=== PATIENT | male | born 1975 | race Caucasian/White ===

== ENCOUNTER 2019-03-19 17:23 | Observation (INO) | payer BC, SELFPAY ==
--- NOTE | ~2019-03-19 | CT_ITS ---
EXAMINATION: CTA chest PE protocol DATE: 03/19/2019 18:32 INDICATION: Mid chest pain TECHNIQUE: Computed tomography angiography (CTA) of the chest was performed with 100 mL Omnipaque-350 intravenous contrast timed to evaluate the pulmonary arteries. Coronal maximum intensity projection 3D-reconstructions were created by the technologist. The dose-length product (DLP) was 653.71 mGy-cm. Automated exposure control and iterative reconstruction technique were employed. COMPARISON: None. FINDINGS: The pulmonary arteries are moderately well opacified. No pulmonary embolism is identified. There is mild dependent atelectasis. A 2 mm nodule of the right middle lobe likely reflects old granu lomatous disease. No pleural effusion or pneumothorax is identified. No pathologically enlarged thora cic lymph nodes are identified. The heart size is normal. A disc spacer device is noted at C6-7. IMPRESSION: 1. Moderate opacification of the pulmonary arteries without evidence of pulmonary embolism. 2. Mild atelectasis. Reviewed, dictated and finalized at location A. MACHINE OPERATOR IMPRESSION: 1. Moderate opacification of the pulmonary arteries without evidence of pulmona ry embolism. 2. Mild atelectasis.
[2019-03-19 17:39] VITALS: BP 160/93; PULSE 89; RESP 20; TEMP 36.7; O2SAT 100
--- NOTE | 2019-03-19 17:41 | ECG_ITS ---
Measurements Intervals [place] Rate: 79 P: 49 SC: 172 QRS: 35 QRSD: 104 T: 51 QT: 326 QTc: 376 Interpretive Statements SINUS RHYTHM NORMAL ECG Electronically Signed On 03-20-2019 7:01:46 BOX WORKER by Timoteo Sal D.O.
[2019-03-19] MEDS: ASPIRIN 81 MG CHEWABLE TABLET 324 MG PO (17:48)
--- NOTE | 2019-03-19 17:54 | ED.CHESTPAIN ---
HPI - Chest Pain General Chief Complaint: Chest Pain Stated Complaint: chest pain Time Seen by Provider: 03/19/19 17:53 Source: patient and RN notes reviewed Mode of arrival: other Limitations: no limitations History of Present Illness HPI narrative: Pt is a 43 y/o male who presents to the ED with c/o generalized upper CP that began at 4:30 PM today while driving home from work. Pt was recommended to come to the ED for furher evaluation. He notes that his pain is currently better. Pt was recently dx with HTN and hyperlipidemia on (03/15/19). Pt states that he went to his PCP's office today for a recheck on his HTN. He states that he has not been prescribed any medication because his PCP has been monitoring his HTN. Pt also reports posterior head pressure pain and nausea, but denies SOB, vomiting, and diaphoresis. 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 complaint: chest pain Onset (ago): hour(s) (2) Timing of current episode: other (improved currently) Onset: other (while driving) Pain location: other (generalized upper chest) Relieving factors: medication-other (ASA) Associated symptoms: nausea and other (posterior head pressure pain) Risk Factors Coronary artery disease risk factors: hyperlipidemia, hypertension and family history of CAD before age 50 Related Data Home Medications Medication Instructions Recorded Confirmed No Home Medications 03/19/19 03/19/19 Allergies Allergy/AdvReac Type Severity Reaction Status Date / Time latex Allergy Unknown Rash Verified 03/19/19 17:43 Review of Systems Review of Systems: All systems reviewed & are unremarkable except as noted in HPI and below Cardiovascular: Cardiovascular: Reports chest pain (generalized upper, better currently) and Denies diaphoresis Respiratory: Respiratory: Denies dyspnea Gastrointestinal: Gastrointestinal: Reports nausea and Denies vomiting Neurologic: Reports other (posterior head pressure pain) [facility] Past Medical History Medical History (Updated 03/19/19 @ 20:10 by Portia Romano MD) Hyperlipidemia Hypertension Inguinal hernia Surgical History Surgical History (Updated 03/19/19 @ 18:49 by Yoko Santamaria) H/O cervical spine surgery to replace a disc with an artificial disc. No fusion. H/O inguinal hernia repair Family History Family History (Updated 03/19/19 @ 18:46 by Yoko Santamaria) Father Hx of CABG 40s-50s Myocardial infarction 40s-50s Social History Social History (Updated 03/19/19 @ 18:47 by Yoko Santamaria) Smoking status: Never smoker Second hand tobacco smoke exposure: No Alcohol intake: never Substance use: never Exam Const: General: cooperative, no acute distress and alert Nutritional Appearance: well nourished Orientation/consciousness: patient oriented x3 Limitations: no limitations HENMT: Mouth: Yes lip normal and Yes moist mucous membranes Throat: other (throat normal) Resp: Effort & Inspection: normal respiratory effort Auscultation: clear to auscultation bilaterally Cardio: Rate: regular rate Rhythm: regular rhythm Heart sounds: no murmurs GI: GI Palp: Yes Soft to palpation and No Tenderness to palpation present (GI) Auscultation: normal bowel sounds Skin: General skin exam: normal color Neuro: General: patient oriented x3 Cognition (Neuro): normal cognition Speech: normal speech Extrem: General: normal to inspection, full ROM and no clubbing, cyanosis or edema Psych: Mental Status: mental status grossly normal Affect: normal affect Attitude: cooperative Course Course Emergency Course: Patient presents with symptoms of chest pain. Recently found to have hypertension hyperlipidemia. Family history is positive for coronary disease. Patient pain-free after nitroglycerin. No evidence of pulmonary embolism noted on CT scan. Patient will be placed in observation to chest pain center for further evaluation. Reevaluation(s) Reevaluation #1: Notified by nurse cornejo
[2019-03-19 17:56] LABS: Basophils Percent Auto 0.5 % (0.2-1.2); Eosinophils Absolute Auto 0.1 K/mm3 (0-0.3); Eosinophils Percent Auto 0.7 % (0-4.4); Hematocrit 44.6 % (42.0-52.0); Immature Granulocyte Absolute 0.03 K/mm3 (0.00-0.031); Immature Granulocyte Percent A 0.4 % (0-0.5); Lymphocytes Absolute Auto 2.91 K/mm3 (0.9-3.2); Lymphocytes Percent Auto 34.3 % (18.3-44.2); Mean Corpuscular HGB Conc 33.6 g/dl (32-36); Mean Corpuscular Hemoglobin 29.3 pg (26-34); Mean Corpuscular Volume 87.1 fl (80-100); Mean Platelet Volume 9.4 fl (7.4-10.4); Monocytes Absolute Auto 0.6 K/mm3 (0.1-0.6); Monocytes Percent Auto 6.5 % (2.6-8.5); Neutrophils Absolute Auto 4.9 K/mm3 (1.3-6.7); Neutrophils Percent Auto 57.6 % (45.5-73.1); Platelet Count Result 290 k/mm3 (150-375); Red Blood Count 5.12 M/mm3 (4.6-6.20); Red Cell Distribution Width 12.2 % (11.5-14.5); White Blood Count 8.5 K/mm3 (4.5-10.0)
[2019-03-19 18:01] LABS: Blood Urea Nitrogen 11 mg/dL (9-20); Calcium 9.4 mg/dL (8.4-10.2); Carbon Dioxide 25 mmol/L (22-30); Chloride 99 mmol/L (98-107); Estimated CRCL calculation 148 ml/min; Estimated Glomerular Filt Rate > 60; Glucose 124 mg/dL (75-110); Potassium 4.3 mmol/L (3.4-5.0); Sodium 138 mmol/L (137-145)
--- NOTE | 2019-03-19 18:02 | PC.NURSE ---
Pt received 1, 0.4mg nitro sl at 1803. pt bp 120/62, hr 94bpm. pt cp rated at 5/10.
[2019-03-19 18:13] LABS: Troponin I < 0.012 ng/mL (0.000-0.034)
[2019-03-19 18:15] VITALS: O2SAT 90
--- NOTE | 2019-03-19 18:22 | PC.NURSE ---
180. pt recieved 2nd 0.4mg sl nitro, pt pt decreased after first to 03/19. 1811- EDP at bedside to eval pt after his spo2 dropped to 90% on RA. EDP states to hold 3rd nitro. CTA chest ordered.
[2019-03-19 18:27] LABS: Prothrombin Time 12.9 Seconds (11.1-14.7)
[2019-03-19 18:28] LABS: Partial Thromboplastin Time 25.1 SECONDS (22.3-36.8)
[2019-03-19 18:48] LABS: NT Pro B Type Natriuretic Pept 24 PG/ML (5-100)
[2019-03-19] MEDS: NITROGLYCERIN SL 0.4 MG TABLET SUBLINGUAL (19:37)
[2019-03-19] MEDS: NITROGLYCERIN OINTMENT 1 INCH DOSE TRANSDERM (19:41)
[2019-03-19 20:18] VITALS: BP 117/76
[2019-03-19 20:22] VITALS: BMI 31.1
[2019-03-19 20:25] VITALS: BP 122/72; PULSE 74; PULSE 75; RESP 16; TEMP 36.4; O2SAT 95
--- NOTE | 2019-03-19 20:43 | ADMGEN ---
This patient, Daron Nguyen, was admitted to [facility] [id number]. Patient/family oriented to hospital policies and general routines including ID bracelet, bed and alarms, visiting hours, pain management, procedures, bathroom and other care routines, personal items, smoking policy, room service/diet, and visiting hours. Valuables list has been completed. Information on how to activate the Rapid Response Team has been discussed. Patient/Family are encouraged to report perceived risks to care and to ask questions if they do not understand what they are told or what they should do.
[2019-03-19 21:37] LABS: Cholesterol 176 mg/dL (0-200); HDL Direct 25 mg/dL; Triglycerides 206 mg/dL (<150)
[2019-03-19 21:48] LABS: LDL Cholesterol Direct 103 mg/dL
[2019-03-19 21:50] LABS: Troponin I < 0.012 ng/mL (0.000-0.034)
[2019-03-19 22:00] VITALS: PULSE 81
--- NOTE | 2019-03-19 22:44 | ECG_ITS ---
Measurements Intervals [place] Rate: 77 P: 54 RI: 183 QRS: 48 QRSD: 102 T: 47 QT: 353 QTc: 399 Interpretive Statements SINUS RHYTHM NORMAL ECG Electronically Signed On 03-20-2019 7:12:54 BAG CUTTER by Timoteo Sal D.O.
[2019-03-20] VITALS (8 sets, daily range): BP systolic 108–135; BP diastolic 61–71; PULSE 71–82; RESP 14–16; TEMP 36.1–36.5; O2SAT 93–100
--- NOTE | 2019-03-20 | EST_ITS ---
Patient Info Name: Daron Nguyen Age: 43 years : 1975 Gender: Male Ht: 72 in Wt: 230 lbs BSA: 2.33 m2 Technical Quality: Good Exam Date: 03/20/2019 11:12 AM Exam Location: [facility] Patient Status: Inpatient Admit Date: 03/19/2019 Staff Ordering Physician: Eladio Smith MD Branch Manager: Eleazar Juarez RDCS Attending Provider: DILLAN MARIN Exercise Technologist: Virgen Benedict RDCS Nurse: Dillan Mccormick ANP, ACNP-BC Exam Type: CA stress echo Study Info Indications R07.89 - Other chest pain Treadmill exercise stress echocardiogram is performed. History/Risk Factors Family History: Coronary Artery Disease History/Risk Factors Hypertension, dyslipidemia. Summary 1. Resting EKG showed sinus rhythm, no significant ST-T abnormalities. Patient exercised for 11.51 minutes achieving a cardiac workload of 12.1 Mets.Baseline No ECG evidence of ischemia. PVCs were seen during the exercise and in the recovery. Baseline echocardiogram showed normal LV systolic function. Stress echocardiogram showed hyperdynamic LV systolic function without segmental wall motion abnormality. Stress echocardiogram negative for ischemia at 97% of maximum age predicted heart rate. Stress Echo Findings Left Ventricle Hyperdynamic LV systolic function, no segmental wall motion abnormalities. Left Ventricle Normal LV size, and systolic function, ejection fraction about 65-70%. Protocol: Ashish Stress ECG Details Stage: REST Duration (min): 5 min : 11 sec Speed (mph): 0.0 Grade (%): 0 HR (bpm): 82 SBP (mmHg): 135 DBP (mmHg): 58 METS: --- Stage: REST Duration (min): 12 min : 56 sec Speed (mph): 0.0 Grade (%): 0 HR (bpm): 90 SBP (mmHg): 135 DBP (mmHg): 58 METS: --- Stage: STAGE 1 Duration (min): 1 min : 0 sec Speed (mph): 1.7 Grade (%): 10 HR (bpm): 107 SBP (mmHg): 135 DBP (mmHg): 58 METS: --- Stage: STAGE 1 Duration (min): 2 min : 0 sec Speed (mph): 1.7 Grade (%): 10 HR (bpm): 109 SBP (mmHg): 135 DBP (mmHg): 58 METS: --- Stage: STAGE 1 Duration (min): 3 min : 0 sec Speed (mph): 1.7 Grade (%): 10 HR (bpm): 104 SBP (mmHg): 140 DBP (mmHg): 56 METS: --- Stage: STAGE 2 Duration (min): 1 min : 0 sec Speed (mph): 2.5 Grade (%): 12 HR (bpm): 122 SBP (mmHg): 140 DBP (mmHg): 56 METS: --- Stage: STAGE 2 Duration (min): 2 min : 0 sec Speed (mph): 2.5 Grade (%): 12 HR (bpm): 125 SBP (mmHg): 165 DBP (mmHg): 70 METS: --- Stage: STAGE 2 Duration (min): 3 min : 0 sec Speed (mph): 2.5 Grade (%): 12 HR (bpm): 126 SBP (mmHg): 165 DBP (mmHg): 70 METS: --- Stage: STAGE 3 Duration (min): 1 min : 0 sec Speed (mph): 3.4 Grade (%): 14 HR (bpm): 140 SBP (mmHg): 183 DBP (mmHg): 70 METS: --- Stage: STAGE 3 Duration (min): 2 min : 0 sec Speed (mph): 3.4 Grade (%): 14 HR (bpm): 146 SBP (mmHg): 183
[2019-03-20 00:14] LABS: Troponin I < 0.012 ng/mL (0.000-0.034)
--- NOTE | 2019-03-20 01:44 | ECG_ITS ---
Measurements Intervals [place] Rate: 72 P: 50 DC: 179 QRS: 48 QRSD: 109 T: 39 QT: 356 QTc: 390 Interpretive Statements SINUS RHYTHM NORMAL ECG Electronically Signed On 03-20-2019 9:00:05 SUPERVISOR TYPE PHOTOGRAPHY by Timoteo Sal D.O.
[2019-03-20] MEDS: ASPIRIN 81 MG CHEWABLE TABLET PO (07:11)
[2019-03-20] MEDS: ACETAMINOPHEN 325 MG TABLET 650 MG PO (07:11)
--- NOTE | 2019-03-20 09:49 | PM.IMHP ---
H&P: HPI History of Present Illness Chief complaint: chest pain Narrative: Date of service: 03/20/2019 Chief complaint: Chest pain HPI: Daron Nguyen is a 43 year old male with recently diagnosed possible hypertension, dyslipidemia. Patient was admitted to [facility] with complaints of chest discomfort that started yesterday afternoon. Patient states that he was recently found to have elevated blood pressure and has not been initiated on antihypertensives yet. His blood pressures are ranging in the 130s to 150s systolic. Yesterday, patient states that his blood pressure was elevated at 173/96 mmHg. Patient had substernal chest discomfort which she described as tight sensation, localized, associated with mild shortness of breath. He denies any palpitation, dizziness or syncope. Patient denies any prior history of clinical OH, angina, heart failure or any arrhythmias. Patient states that his chest pain improved with nitroglycerin and aspirin. He gives family history of early CAD in his father. Patient is a nonsmoker, does not drink excessively, and denies any illicit drug use. He lives with his and children. Patient's EKG on this admission which I personally evaluated showed sinus rhythm without any acute ST segment abnormality. Follow-up EKGs are unremarkable. CT scan of the chest performed in the emergency room did not show PE; reported mild atelectasis. Serial troponins are negative. Review of Systems Constitutional: Constitutional: Denies chills, Denies fatigue, Denies fever(s) and Denies headache(s) Eyes: Eyes: Reports as per HPI, Denies change in vision, Denies loss of vision and Denies eye pain ENT: Reports as per HPI, Reports Normal hearing present, Denies headache(s), Denies lip swelling, Denies epistaxis and Denies sore throat Cardiovascular: Cardiovascular: Reports as per HPI, Reports chest pain, Denies syncope, Denies irregular heart rhythm, Denies lightheadedness and Reports dyspnea Respiratory: Respiratory: Reports as per HPI, Denies cough, Denies dyspnea and Denies wheezing Gastrointestinal: Gastrointestinal: Reports as per HPI, Denies abdominal pain, Denies melena, Denies nausea and Denies vomiting Genitourinary: Genitourinary: Reports as per HPI Musculoskeletal: Musculoskeletal: Reports as per HPI, Denies myalgias, Denies muscle cramps and Denies muscle weakness Integumentary/Breasts: Skin/Breast: Reports as per HPI, Denies pruritus and Denies rash Neurologic: Reports as per HPI, Reports Normal hearing present, Denies behavioral changes, Denies syncope, Denies headache(s) and Denies loss of vision Psychiatric: Psychiatric: Reports as per HPI, Denies anxiety, Denies behavioral changes and Denies depression Endocrine: Endocrine: Reports as per HPI, Denies fatigue, Denies polydipsia and Denies polyuria Hematologic/Lymphatic: Hematologic/Lymphatic: Reports as per HPI, Denies easy bleeding and Denies easy bruising Allergic/Immunologic: Allergic/Immunologic: Reports as per HPI, Denies lip swelling and Denies wheezing PMFSH Past Medical History Medical History Hyperlipidemia Hypertension Inguinal hernia Surgical History Surgical History H/O cervical spine surgery to replace a disc with an artificial disc. No fusion. H/O inguinal hernia repair Family History Family History Father Myocardial infarction 40s-50s Hx of CABG 40s-50s Smoking COPD (chronic obstructive pulmonary disease) Mother Smoking COPD (chronic obstructive pulmonary disease) Social History Social History Smoking status: Never smoker Second hand tobacco smoke exposure: No Alcohol intake: never Substance use: never Gender identity (if verbalized by the patient): Male Meds Home Medications and A
--- NOTE | 2019-03-20 10:06 | PC.NURSE ---
1000-Nitro patch removed per MD order. Pt resting quietly. Will continue to monitor.
--- NOTE | 2019-03-20 14:26 | PM.DS ---
DS: Diagnosis Admitting Diagnosis Admitting Diagnosis: Chest pain, unspecified Discharge Diagnosis (1) Chest pain: Code(s): R07.9 - Chest pain, unspecified Status: Acute Assessment and Plan: 43-year-old male with recently diagnosed possible hypertension, dyslipidemia. He was admitted to the [facility] with complaints of substernal chest tightness that improved with aspirin and nitroglycerin. His home blood pressures have been elevated recently. CTA of the chest was negative for pulmonary embolism. He was ruled out for myocardial infarction by serial negative cardiac biomarkers. Stress echocardiogram was performed which was negative for ischemia. He was discharged home in pain-free condition. Low-sodium diet was recommended. Blood pressures will be evaluated in the office. DS: Summary Time Spent with Patient Time attestation: Total time spent providing and/or coordinating discharge services: 15 minutes to do discharge instructions, discharge order and discharge summary Exam Const: General: no acute distress, alert and awake HENMT: Head: normocephalic and atraumatic Ears: hearing grossly normal bilaterally and external ears normal General nose exam: Normal external nose present and no epistaxis Face and sinus: normal facial exam and no ecchymosis Mouth: Yes tongue normal and Yes moist mucous membranes Teeth and gingiva: dentition normal Eyes: Conjunctivae: conjunctivae normal Sclera: sclerae normal Pupils: Equal, round and reactive pupils present EOM: EOMs intact bilaterally Neck: Neck: normal visual inspection, supple and no JVD Thyroid: thyroid normal Carotids: normal carotid upstroke Resp: Effort & Inspection: normal respiratory effort and able to speak in complete sentences Auscultation: clear to auscultation bilaterally Cardio: Jugular venous distension: no JVD Rate: regular rate Rhythm: regular rhythm Heart sounds: S1 normal heart sound present, S2 normal heart sound present and no murmurs GI: Inspection: normal to inspection Auscultation: normal bowel sounds Skin: Other: no rash on exposed areas, no cyanosis Neuro: Cranial nerves: Yes Equal, round and reactive pupils present and Yes Normal hearing present Other: alert, oriented, no major focal deficits on gross neurological examination Extrem: Other: no edema, no cyanosis, no major deformities Psych: Appearance: grossly normal Mental Status: mental status grossly normal DS: Data Data Completed and Pending Labs on day of discharge: Labs from last 24 hours 03/19/19 03/19/19 03/19/19 23:37 21:17 21:17 WBC RBC Hgb Hct MCV MCH MCHC RDW Plt Count MPV Immature Gran % (Auto) Neut % (Auto) Lymph % (Auto) [place] % (Auto) Eos % (Auto) Baso % (Auto) Lymph # (Auto) [place] # (Auto) Eos # (Auto) Baso # (Auto) Abs Immat Gran (auto) Absolute Neuts (auto) Absolute Nucleated RBC Nucleated RBC % PT INR APTT Sodium Potassium Chloride Carbon Dioxide BUN Creatinine Estim Creat Clear Calc Estimated GFR Glucose Calcium Troponin I < 0.012 < 0.012 NT-Pro-B Natriuret Pep Triglycerides 206 H Cholesterol 176 LDL Cholesterol Direct 103 HDL Direct 25 03/19/19 03/19/19 03/19/19 18:09 17:45 17:44 WBC 8.5 RBC 5.12 Hgb 15.0 Hct 44.6 MCV 87.1 MCH 29.3 MCHC 33.6 RDW 12.2 Plt Count 290 MPV 9.4 Immature Gran % (Auto) 0.4 Neut % (Auto) 57.6 Lymph % (Auto) 34.3 [place] % (Auto) 6.5 Eos % (Auto) 0.7 Baso % (Auto) 0.5 Lymph # (Auto) 2.91 [place] # (Auto) 0.6 Eos # (Auto) 0.1 Baso # (Auto) 0.0 Abs Immat Gran (auto) 0.03 Absolute Neuts (auto) 4.9 Absolute Nucleated RBC 0.0 Nucleated RBC % 0.0 PT 12.9 INR 1.0 APTT 25.1 Sodium Potassium Chloride Carbon Dioxide BUN Creatinine Estim Creat Alicia
--- NOTE | 2019-03-20 14:40 | PC.NURSE ---
1430-pt given D/C orders and instructions. Questions answered and verbalized understanding. PIV removed intact. Ambulated per request to waiting vehicle. No distress noted or expressed at time of departure.
== END 2019-03-20 14:25 | disposition home or self-care (01) ==
LOC: ANHED 18:03 → ANHCPC 19:56
PROVIDERS: Admitting Provider Internal Medicine Cardiovascular Disease; Emergency Provider Emergency Medicine; PCP Nurse Practitioner; Visit Provider Internal Medicine Cardiovascular Disease
DX: R07.9 Chest pain, unspecified (principal); Z82.49 Family history of ischemic heart disease and other diseases of the circulatory system; R03.0 Elevated blood-pressure reading, without diagnosis of hypertension; R06.00 Dyspnea, unspecified
CPT/HCPCS: 36415; 71275; 80048; 80061; 83880; 84484; 85025; 85610; 85730; 93005; 93351; 99285; A9270; G0378; G0379; Q9967

== ENCOUNTER 2022-03-30 14:26 | Emergency (ER) | payer OTHER, SELFPAY ==
--- NOTE | ~2022-03-30 | CT_ITS ---
EXAMINATION: CT abdomen pelvis w con DATE: 03/30/2022 17:40 INDICATION: rlq abd pain, nausea TECHNIQUE: Computed tomography (CT) of the abdomen and pelvis was performed with 100 mL Omnipaque-350 intravenous contrast. Automated exposure control and iterative reconstruction technique were employe d. The dose-length product was 766.31 mGy-cm. COMPARISON: 02/12/2015. FINDINGS: Lower thorax: Bilateral lower lung scar/atelectasis. Liver: Diffuse fatty infiltration. Biliary/Gallbladder: Gallbladder is normal. No bile duct dilation. Pancreas: No mass or duct dilation. Spleen: Small simple splenic cyst Adrenals:No mass. Kidneys: No suspicious mass, stone, or hydronephrosis. Subcentimeter right upper pole hypodensity, to o small to characterize but most likely represents a cyst. GI tract: No small or large bowel dilation. Normal appendix. Mild scattered diverticulosis, without d iverticulitis. Mesentery/Peritoneum: No ascites, mass, or free air. Retroperitoneum: No mass. Mild atherosclerotic abdominal aortic and/or arterial calcifications. Pelvis: Pelvic organs are within normal limits. Multiple soft tissue anchors in the bilateral anterio r pelvis likely from prior hernia repair. Soft Tissues: Uncomplicated fat-containing right inguinal hernia. Bones: No acute osseous finding. IMPRESSION: Hepatic steatosis. Otherwise unremarkable CT abdomen and pelvis findings. Reviewed, dictated and finalized at location K. ORIAL CARTOONIST
[2022-03-30 14:32] VITALS: BP 119/78; PULSE 94; RESP 18; TEMP 37; O2SAT 96
[2022-03-30 15:04] LABS: Basophils Absolute Auto 0.1 K/mm3 (0.0-0.1); Basophils Percent Auto 0.6 % (0.2-1.2); Eosinophils Absolute Auto 0.1 K/mm3 (0-0.3); Eosinophils Percent Auto 0.7 % (0-4.4); Hematocrit 44.6 % (42.0-52.0); Hemoglobin 15.4 g/dL (14.0-18.0); Immature Granulocyte Absolute 0.04 K/mm3 (0.00-0.031); Immature Granulocyte Percent A 0.5 % (0-0.5); Lymphocytes Absolute Auto 2.54 K/mm3 (0.9-3.2); Lymphocytes Percent Auto 31.1 % (18.3-44.2); Mean Corpuscular HGB Conc 34.5 g/dl (32-36); Mean Corpuscular Hemoglobin 29.4 pg (26-34); Mean Corpuscular Volume 85.3 fl (80-100); Monocytes Absolute Auto 0.7 K/mm3 (0.1-0.6); Monocytes Percent Auto 8.6 % (2.6-8.5); Neutrophils Absolute Auto 4.8 K/mm3 (1.3-6.7); Neutrophils Percent Auto 58.5 % (45.5-73.1); Platelet Count Result 299 k/mm3 (150-375); Red Blood Count 5.23 M/mm3 (4.6-6.20); Red Cell Distribution Width 11.9 % (11.5-14.5); White Blood Count 8.2 K/mm3 (4.5-10.0)
[2022-03-30 15:09] LABS: Appearance Urine Clear (Clear); Bilirubin Urine Negative (Negative); Blood Urine Negative (Negative); Color Urine Yellow (Yellow); Glucose Urine UA Negative (Negative); Ketones Urine Negative (Negative); Leukocyte Esterase Ur Negative LEU/UL (Negative); Nitrate Urine Negative (Negative); Protein Urine Negative (Negative); Specific Grav Ur 1.015 (1.001-1.035); Urobilinogen Urine 0.2 mg/dL (<2.0)
[2022-03-30 15:12] LABS: Alanine Aminotransferase 38 U/L (6-50); Albumin Level 4.7 g/dL (3.5-5.1); Alkaline Phosphatase 73 U/L (38-126); Anion Gap 6 mmol/L (8-16); Aspartate Amino Transferase 35 U/L (17-59); Bilirubin,Total 0.6 mg/dL (0.2-1.3); Blood Urea Nitrogen 12 mg/dL (9-20); Carbon Dioxide 32 mmol/L (22-30); Chloride 97 mmol/L (98-107); Estimated CRCL calculation 101 ml/min; Estimated Glomerular Filt Rate > 60; Glucose 85 mg/dL (65-110); Lipase 46 U/L (23-300); Potassium 3.8 mmol/L (3.4-5.0); Sodium 135 mmol/L (137-145)
[2022-03-30 15:15] LABS: Add Urine Microscopic? NO
--- NOTE | 2022-03-30 17:09 | ED.ABDPAIN ---
HPI - Abdominal Pain General Chief Complaint: Abdominal Pain Stated Complaint: LOWER ABD PAIN Time Seen by Provider: 03/30/22 17:01 History of Present Illness HPI narrative: Patient is a 46-year-old male here for evaluation of right lower quadrant abdominal pain over the past 2 days. Patient states the pain began while he was lifting a heavy object and has remained ever since. The pain is increased in severity since onset. States feels similar to when he had a hernia in the past. He thinks he might be able to feel a bulge. Has not attempted any medicine for pain. He denies any other symptoms including nausea, vomiting, diarrhea, constipation, fevers, chills, sick contacts. Related Data Allergies Allergy/AdvReac Type Severity Reaction Status Date / Time latex Allergy Unknown Rash Verified 03/19/19 17:43 Review of Systems Review of Systems: Gen: Denies fevers or chills Eyes: Denies eye pain or visual change ENT: Denies congestion Respiratory: Denies shortness of breath or cough CV: Denies chest pain or palpitations GI: Reports abdominal pain. : denies burning, urgency, frequency or hematuria Musculoskeletal: Denies back pain or muscle pain Neuro: Denies numbness, tingling, weakness or focal weakness Skin: Denies rash Except as documented, all other systems reviewed and negative PMFSH Past Medical History Medical History (Updated 03/30/22 @ 18:08 by Gena Sullivan PA-C) Hyperlipidemia Hypertension Inguinal hernia Surgical History Surgical History H/O cervical spine surgery to replace a disc with an artificial disc. No fusion. H/O inguinal hernia repair Family History Family History Father Myocardial infarction 40s-50s Hx of CABG 40s-50s Smoking COPD (chronic obstructive pulmonary disease) Mother Smoking COPD (chronic obstructive pulmonary disease) Social History Social History Smoking status: Never smoker Second hand tobacco smoke exposure: No Alcohol intake: never Substance use: never Gender identity (if verbalized by the patient): Male Exam Narrative: APPEARANCE: Well appearing, no pain in distress, well-nourished. Head: Normocephalic and atraumatic. EYES: PERRLA/EOMI, conjunctivae clear NOSE: No nasal drainage EARS: External ear normal in appearance THROAT: Oropharynx is clear. Mucous membranes are moist. NECK: Supple. No adenopathy, no masses. RESPIRATORY: Airway patent, respirations nonlabored. Clear to auscultation bilaterally, no rales, rhonchi, wheezing. CARDIOVASCULAR: Regular rate and rhythm without murmurs, rubs, or gallops. ABDOMINAL: Tender to palpation in the right lower quadrant. Normoactive bowel sounds. Soft, nondistended. No rebound tenderness or guarding. MUSCULOSKELETAL: Extremities are warm and well-perfused. Moves all extremities well. No edema. NEURO: Normal speech. No focal neurologic deficits. SKIN: Skin is warm and dry. No rashes. PSYCHIATRIC: Normal affect/mood.. Course Vital Signs Vital signs: Vital Signs Temperature 98.6 F 03/30/22 14:32 Pulse Rate 94 03/30/22 14:32 Respiratory Rate 18 03/30/22 14:32 Blood Pressure 119/78 03/30/22 14:32 Pulse Oximetry 96 03/30/22 14:32 Oxygen Delivery Room Air 03/30/22 14:32 Temperature 98.6 F 03/30/22 14:32 Pulse Rate 69 03/30/22 18:50 Respiratory Rate 16 03/30/22 18:50 Blood Pressure 123/77 03/30/22 18:50 Pulse Oximetry 97 03/30/22 18:50 Oxygen Delivery Room Air 03/30/22 14:32 MDM - Abdominal Pain MDM Narrative Medical decision making narrative: 46-year-old male here for evaluation of right lower quadrant discomfort over the past several days after lifting a heavy object. Vital signs are normal. He has slight tenderness to palpation in the right lower quadrant but no palpable
[2022-03-30 17:30] VITALS: BP 120/79; PULSE 83; RESP 16; O2SAT 95
[2022-03-30] MEDS: MORPHINE SULFATE (*CRX) 4 MG/ML INJ IV PUSH (17:30)
[2022-03-30] MEDS: SODIUM CHLORIDE 0.9% IV 1,000 ML 999 ML IV CONT (17:47)
[2022-03-30 18:50] VITALS: BP 123/77; PULSE 69; RESP 16; O2SAT 97
== END 2022-03-30 18:51 | disposition home or self-care (01) ==
PROVIDERS: Emergency Medicine; Emergency Provider Physician Assistant; PCP Nurse Practitioner Family
DX: K40.90 Unilateral inguinal hernia, without obstruction or gangrene, not specified as recurrent (principal); E78.5 Hyperlipidemia, unspecified; I10 Essential (primary) hypertension; K76.0 Fatty (change of) liver, not elsewhere classified
CPT/HCPCS: 36415; 74177; 80053; 81003; 83690; 85025; 96361; 96374; 99284; J2270; J7030; Q9967

== ENCOUNTER 2022-04-19 14:15 | Outpatient (CLI) | payer OTHER, SELFPAY ==
--- NOTE | 2022-04-19 14:39 | ECG_ITS ---
Measurements Intervals [place] Rate: P: AK: QRS: QRSD: T: QT: QTc: Interpretive Statements SINUS RHYTHM INTRAVENTRICULAR CONDUCTION DELAY BASELINE ARTIFACT- I, III, AVR, AVL, AVF, V1-V6 ABNORMAL ECG NO PRIOR ECG FOR COMPARISON Electronically Signed On 04-20-2022 12:49:01 CDT by Timoteo Sal D.O.
[2022-04-19 15:48] LABS: Anion Gap 7 mmol/L (8-16); Blood Urea Nitrogen 14 mg/dL (9-20); Calcium 9.5 mg/dL (8.4-10.2); Carbon Dioxide 31 mmol/L (22-30); Chloride 94 mmol/L (98-107); Estimated Glomerular Filt Rate > 60; Glucose 82 mg/dL (65-110); Potassium 3.2 mmol/L (3.4-5.0); Sodium 132 mmol/L (137-145)
== END 2022-04-19 14:16 | disposition home or self-care (01) ==
LOC: ANHSURGERY 14:25
PROVIDERS: Anesthesiology; PCP Nurse Practitioner Family; Visit Provider Surgery
DX: Z01.810 Encounter for preprocedural cardiovascular examination (principal); Z01.812 Encounter for preprocedural laboratory examination; K40.90 Unilateral inguinal hernia, without obstruction or gangrene, not specified as recurrent; I10 Essential (primary) hypertension; Z79.899 Other long term (current) drug therapy; I45.9 Conduction disorder, unspecified
CPT/HCPCS: 36415; 80048; 86850; 86900; 86901; 93005

== ENCOUNTER 2022-04-26 01:00 | Day surgery (SDC) | payer OTHER, SELFPAY ==
[2022-04-13 13:06] VITALS: BMI 29.9
--- NOTE | 2022-04-13 13:41 | PC.NURSE ---
Report to the Outpatient Waiting Room, entrance under the green pavilion located off [facility], at time 0700 on date 04/26/22_. Planned Procedure Time: _0900__. Time changes happen often and if your time is changed the preop area will call you the afternoon before. - You and your visitor will be asked to self-screen and do not enter if you have any COVID symptoms. - Only one visitor is requested with a max of two and NO children visitors are allowed at this time. - The patient visitor may be requested to leave or wait in car when not with patient due to distancing restrictions. - A mask is optional within the hospital at this time. Patients may have clear liquids (water, carbonated beverages, clear teas, apple juice) until 3 hours prior to surgery with a maximum of 20 ounces. - No food from midnight until time of surgery - Take the following medications with a SIP of water the morning of surgery: __NO MEDS DO NOT STOP ANY OF YOUR OTHER PRESCRIPTION MEDICATIONS PRIOR TO SURGERY ?EXCEPT THE FOLLOWING Medications to discontinue per physician N/A Date to take last dose Please no make-up, nail english, hairspray, perfume, deodorant, or body powder the day of surgery. No jewelry (including any body piercings) or valuables the day of surgery, leave them at home. Please take a shower or bath the night before, or the morning of, surgery with an antibacterial soap. Wear comfortable, loose fitting clothing. - Jewelry must be removed prior to entering the operating room. Rings and piercings that are not removed may be cut off. - The hospital will not accept responsibility for valuables. - Please leave all valuables, including medications, at home the day of surgery. If you are going home after surgery, a licensed bull driver must drive you home. - NO public transportation without another adult if you receive anesthesia. - We recommend that an adult stay with you for 24 hours following discharge. - We also recommend that you do not drive, make important decision, drink alcoholic beverages, or take any drugs that were not prescribed by your health care provider for at least 24 hours after your discharge time. Follow any additional instructions given to you from your surgeon. If you or anyone in your household have experienced Covid symptoms in the past week, please notify your surgeon or the nurse liaison at the phone number below for possible testing. Telephone instructions given to _RON__and asked if any additional questions and then verbalized understanding. Patient advised to call surgeon office or pre surgery nurse liaison [phone] if any additional questions.
[2022-04-26] VITALS (13 sets, daily range): BP systolic 108–131; BP diastolic 65–82; PULSE 68–100; RESP 11–18; TEMP 37.1–37.4; O2SAT 94–100
[2022-04-26] MEDS: LACTATED RINGERS 1,000 ML 30 ML IV CONT ×3 (07:26→13:15)
[2022-04-26] MEDS: ACETAMINOPHEN 500 MG TABLET 1000 MG PO (07:46)
[2022-04-26] MEDS: KETOROLAC 15 MG/ML VIAL (*BKC) IV PUSH (07:49)
--- NOTE | 2022-04-26 08:09 | P.PNAN_ITS ---
Anes - Initial Pre Proc Eval Procedure: Operation Date: 04/26/22 09:00 Proposed Procedures p Robotic Assisted Right Inguinal Hernia Repair With Mesh - Sidra Harris MD Date/Time: 04/26/22 08:09 Surgeon: Sidra Harris MD Pre Op Diagnosis: recurrent right inguinal hernia Patient Data Age: 46 Gender: M Height: 1.83 m Weight: 99.8 kg Last Vital Signs Temp 37.1 C 04/26/22 06:58 Pulse 78 04/26/22 06:58 Resp 16 04/26/22 06:58 BP 129/82 04/26/22 06:58 Pulse Ox 100 04/26/22 06:58 O2 Del Method Room Air 04/26/22 06:58 Allergies Allergy/AdvReac Type Severity Reaction Status Date / Time latex Allergy Unknown Rash Verified 04/26/22 07:26 Home Medications Medication Instructions Recorded Confirmed Type esomeprazole magnesium 20 mg 20 mg PO DAILY 04/02/22 04/26/22 History capsule,delayed release (Nexium) hydrochlorothiazide 12.5 mg capsule 12.5 mg PO DAILY 04/02/22 04/26/22 History lisinopril 5 mg tablet 5 mg PO DAILY 04/02/22 04/26/22 History tadalafil 5 mg tablet (Cialis) 5 mg PO DAILY 04/02/22 04/26/22 History Patient hx anesthesia problems: none Family hx anesthesia problems: none Results Review: All pre-operative results and documents have been reviewed as part of the pre- operative evaluation. [facility] Past Medical History Medical History Hyperlipidemia Hypertension Inguinal hernia Surgical History Surgical History H/O cervical spine surgery to replace a disc with an artificial disc. No fusion. H/O inguinal hernia repair Family History Family History Father Myocardial infarction 40s-50s Hx of CABG 40s-50s Smoking COPD (chronic obstructive pulmonary disease) Mother Smoking COPD (chronic obstructive pulmonary disease) Social History Social History Smoking status: Never smoker Second hand tobacco smoke exposure: No Alcohol intake: never Substance use: never Substance use type: does not use Living arrangements: with family Occupation/Education: occupation Additional occupation/education comments: Medical Educator Gender identity (if verbalized by the patient): Male Spiritual care concerns: No Anes - Eval Final PreProcedure Day of Procedure 04/26/22 08:09 Patient weight: obese Heart: regular rate and rhythm Lungs: clear to auscultation Airway: Mallampati scale class II and special considerations poor dentition Neurological: alert and oriented Last oral intake: >/= 8 hours ASA classification: II Emergent: no Anesthetic plan: proceed Anesthesia type and monitoring: general ETT and standard monitoring Results Review: All pre-operative results and documents have been reviewed as part of the pre- operative evaluation. Informed Consent: The patient's anesthetic plan and its attendant risks and benefits were discussed with the patient/family/POA. Questions were solicited and answers provided to the satisfaction of the patient/family/POA.
--- NOTE | 2022-04-26 08:50 | WPDHPUPDATE1 ---
History and Physical Update Update Date/Time: 04/26/22 08:50 History and Physical has been reviewed, including an updated exam of the patient. There are NO changes in the patient's condition. Risks, benefits, and alternatives have been discussed and questions answered. Patient agrees to proceed with procedure.
[2022-04-26] MEDS: ceFAZolin 2 GM/D5W 50 ML 2 GM/50 ML BAG IVPB (09:00)
[2022-04-26] MEDS: BUPIVACAINE/EPINEPHRINE 0.25% 50 ML VIAL 30 ML INFILTRATE (09:34)
--- NOTE | 2022-04-26 11:43 | W.PM.PROC2 ---
Procedure Note - Detailed Date of Procedure 04/26/22 Pre-op Diagnosis recurrent right inguinal hernia Post-op Diagnosis Same Procedure Performed robotic assisted recurrent right inguinal hernia repair with mesh, extensive lysis of adhesions of approximately 60 minutes Surgeon Sidra Harris MD Anesthesia General Indications 46-year-old male with worsening right inguinal hernia, discomfort over the last few months after incident at work. Pt had bilateral inguinal hernia repair in 2003. Findings recurrent indirect right inguinal hernia, previous mesh bunched into defect, multiple metal spiral tacks Description of Procedure Patient was brought into the operating room and placed in the supine position. After adequate induction of general anesthesia, the patient was prepped and draped in normal sterile fashion. A time-out was then done to verify the patient's identity, as well as the procedure being performed. Began by making a 8 mm incision in the supraumbilical region, a Veress needle was then placed into the peritoneal cavity. CO2 gas was then insufflated and after adequate pneumoperitoneum was achieved, the Veress needle was removed. I then placed an 8 mm trocar through this incision. I then placed the endoscope through this trocar site and under direct visualization placed 2 further 8 mm ports in the right and left mid abdomen. The [employer] robot was then docked to the 3 trocar sites. I then scrubbed out and went to the robotic console. Upon examining the pelvis, it was noted that the patient had a large right inguinal hernia. There was noted adhesions in this area and these were taken down. The left side was examined and no hernia defect was noted. I began by making a preperitoneal flap approximately 6 cm superior to the defect. This flap was carried medially past the umbilical ligaments in laterally to the transversalis. It then began dissection of my medial compartment taking this down to the pubic tubercle. I then began the lateral dissection taking this down to the transversalis fascia. Once these compartments were achieved, I began dissection around the cord structures. This was very tedious and difficult as there was noted to be previously placed mesh and tacks in this area. The mesh was bunched up and seems to be plugging the indirect space. There was also noted to be multiple metal spiral tacks in this area. There was noted to be a recurrence lateral to the mesh. There was also noted to be a large lipoma of the cord. Using very careful dissection, I was able to reduce the sac and lipoma. I then was able to dissect the previously placed mesh/tacks down as well. This was very adherent to the underlying peritoneum so I decided to leave the mesh. This dissection took approximately 60 minutes. I was able to identify the cord structures but there was noted to be lots of scarring and displacement given the previously placed mesh, tacks. Once this was adequately done, I went ahead and placed a large piece of 3D Max mesh into the abdominal cavity. The mesh was carefully positioned, centering the center of the mesh over the indirect defect. Once this was done, was very satisfied with our repair. Using 3-0 Vicryl sutures, I tacked the mesh medially to Fran's ligament. Two lateral sutures were placed from the mesh to the transversalis fascia. I then closed the peritoneal flap with a running 2.0 V Lock suture. The abdomen was then desufflated, and all ports were removed. All incisions were then closed with the 4.0 monocryl suture. Dermabond was placed on each wound. The patient tolerated the procedure well, was extubated in the operating room postoperatively, and will now be transferred to the recovery room in stable condition. Implants large 3DMax mesh Estimated Blood Loss 20 Drains No Packing No Pathology None sent Complications No immediate complications Condition Stable Disposition PACU [facility] Billing Surgery - Charge Forwa
[2022-04-26] MEDS: ONDANSETRON INJ 4 MG/2 ML VIAL IV PUSH (12:03)
[2022-04-26] MEDS: fentaNYL CITRATE INJ (*CRX) 100 MCG/2 ML VIAL 25 MCG IV PUSH ×2 (12:20→12:31)
[2022-04-26] MEDS: oxyCODONE HCL (*CRX) 5 MG TAB IR PO (13:14)
--- NOTE | 2022-04-26 13:59 | SUR.PHASEII ---
pt ambulated to the BR still unable to void. pt given more water and soda.
== END 2022-04-26 15:27 | disposition home or self-care (01) ==
PROVIDERS: PCP Nurse Practitioner Family; Visit Provider Surgery
PROC: 8E0Y4CZ Robotic Assisted Procedure of Lower Extremity, Percutaneous Endoscopic Approach (ICD-10-PCS; CPT 49650; principal; 2022-04-26 09:00)
DX: K40.91 Unilateral inguinal hernia, without obstruction or gangrene, recurrent (principal); I10 Essential (primary) hypertension; E78.5 Hyperlipidemia, unspecified; E66.9 Obesity, unspecified; Z68.29 Body mass index [BMI] 29.0-29.9, adult
CPT/HCPCS: 49651; S2900; A9270; C1781; J0690; J1100; J1170; J1885; J2250; J2405; J2704; J2710; J3010; J7030; J7120

== ENCOUNTER 2022-11-10 10:15 | Outpatient (CLI) | payer BC, SELFPAY ==
--- NOTE | ~2022-11-10 | US_ITS ---
EXAMINATION: US scrotum doppler DATE: 11/10/2022 10:57 INDICATION: N50.811 - Right testicular pain . TECHNIQUE: Grayscale and Doppler ultrasound images of the testes were obtained. COMPARISON: None. FINDINGS: The right testis measures 4.4 x 2.1 x 3.3 cm. The left testis measures 4.3 x 1.9 x 2.6 cm. No testicular mass. There is normal vascular flow to both testes. The right epididymis is normal with normal vascular flow. The left epididymis is normal with normal vascular flow. No hydrocele. Dilated peritesticular veins. IMPRESSION: Bilateral varicoceles. Reviewed, dictated and finalized at location K. IMPRESSION: Bilateral varicoceles.
== END 2022-11-10 10:16 ==
PROVIDERS: PCP Surgery; Visit Provider Surgery
DX: I86.1 Scrotal varices (principal)
CPT/HCPCS: 76870; 93976

== ENCOUNTER 2024-10-28 11:42 | Emergency (ER) | payer BC, SELFPAY ==
--- NOTE | 2024-10-28 11:45 | ED_ITS ---
HPI - URI/Sore Throat General Chief Complaint: Upper Respiratory Infection Stated Complaint: SORE THROAT Time Seen by Provider: 10/28/24 12:13 Source: patient and RN notes reviewed Mode of arrival: ambulatory Limitations: no limitations History of Present Illness HPI Narrative: 48-year-old male presents with concern for 2 week history of sore throat, ear pain. He reports cough and headache. He reports he has had mild sinus drainage. He has been taking Tylenol ibuprofen. MD elicited complaint: sore throat Related Data Home Medications ?Medication ?Instructions ?Recorded ?Confirmed ?Last Taken ?Type esomeprazole magnesium 20 mg 20 mg PO DAILY 04/02/22 1 Unknown History capsule,delayed release (Nexium) lisinopril 5 mg tablet 5 mg PO DAILY 04/02/2211/08 Unknown History tadalafil 5 mg tablet (Cialis) 5 mg PO DAILY 04/02/22 11/08/22 Unknown History hydrochlorothiazide 25 mg tablet mg 10/28/24 Unknown History testosterone cypionate 200 mg/mL mg 10/28/24 Unknown History intramuscular oil Allergies Allergy/AdvReac Type Severity Reaction Status Date / Time latex Allergy Unknown Rash Verified 10/28/24 11:52 Review of Systems Review of Systems: CONSTITUTIONAL: Reports malaise, chills, sweats EYES: Denies visual changes, redness, or discharge. ENT: Reports rhinorrhea, congestion, and sore throat. CARDIOVASCULAR: Denies chest pain, palpitations, or edema. RESPIRATORY: Reports cough. Denies dyspnea. GASTROINTESTINAL: Denies abdominal pain, nausea, vomiting, diarrhea SKIN: Denies rash or itching. MUSCULOSKELETAL: Denies myalgia. NEUROLOGIC: Reports headache. All systems reviewed & are unremarkable except as noted in HPI and below [facility] Past Medical History Medical History Hyperlipidemia Hypertension Inguinal hernia Surgical History Surgical History H/O cervical spine surgery to replace a disc with an artificial disc. No fusion. H/O inguinal hernia repair April 2022 right inguinal hernia repair with mesh Family History Family History Father Myocardial infarction 40s-50s Hx of CABG 40s-50s Smoking COPD (chronic obstructive pulmonary disease) Mother Smoking COPD (chronic obstructive pulmonary disease) Social History Social History Smoking status: Never smoker Second hand tobacco smoke exposure: No Alcohol intake: never Substance use: never Substance use type: does not use Living arrangements: with family Occupation/Education: occupation Additional occupation/education comments: Wood Mechanist Gender identity (if verbalized by the patient): Male Spiritual care concerns: No Comments At time of signature, agree with nursing past medical, surgical, social and family history. There is no relevant family history pertinent to the presenting complaint Exam Narrative: GENERAL: Well-appearing, well-nourished, and in no acute distress. HEAD: Normocephalic EYES: PERRLA, conjunctivae clear ENT: Nares clear. Mucous membranes moist. TM pearly sánchez with dull light reflex bilaterally; no tragal tenderness. Oropharynx erythematous without lesions. Tonsils not enlarged and without exudate, no drooling, no hoarseness, no trismus, uvula midline. NECK: Supple. No lymphadenopathy CHEST: Clear to auscultation, breath sounds equal. No wheezing, rhonchi, rales, or stridor. No respiratory distress, speaks in full sentences. HEART: Regular rate and rhythm. No murmur heard. SKIN: Warm, dry, no rash. NEURO: Alert and oriented x3. PSYCH: Normal mood and affect Course Course Emergency Course: Patient is aware of diagnosis, understands and agrees to treatment plan. Anticipatory guidance given. Patient agrees to follow-up as directed and is aware of reasons to seek care at the emergency department. Portions of this record may have been created with voice recognition software Level of Care: Express Care Visit Vital Signs Vital signs: Reviewed. MDM - URI/Sore Throat MDM Narrative Medical decision making narrative: Differential diagnosis considered: [place] virus, strep pharyngitis, allergic rhinitis, upper respiratory tract infection, sinusitis, rhinosinusitis, nasopharyngitis. viral pharyngitis, otitis media, otitis externa, pneumonia, bronchitis, viral cough syndrome, viral syndrome, and influenza. Exam findings show no acute concerns or changes; patient is non-toxic appearing and is in no distress. Patient is appropriate for outpatient treatment and follow-up. Lab Data Attestation: I reviewed the patient's lab results. Critical Care Time Critical Care Time Critical Care Time: No Discharge Plan Discharge Clinical Impression: Acute streptococcal pharyngitis Patient Disposition: Home Condition: Stable Instructions: Antibiotic Form, Strep Throat (ED) Additional Instructions: -Take the medication as prescribed. Throw away the toothbrush after 24hours of antibiotic. -Eat and drink things that are easy to swallow, like tea or soup, or popsicles to suck on. -Oral rinses such as: Salt water gargles and/or may use topical anesthetic (eg. Chloraseptic spray) or lozenges to relieve dryness or throat pain). -Take Tylenol and ibuprofen as needed for pain and fever as directed. -Frequent hand washing or hand assistant office manager is one of the best ways to prevent spread of infection. -Follow up with primary care provider in 2-3 days if condition is not improving; or seek ER visit if you have trouble breathing, cannot drink enough fluids, have muffled voice, difficulty opening your mouth, or severe swelling. Patient Language: Syrian Prescriptions: New penicillin V potassium 500 mg tablet 500 mg PO Q12H 10 Days Qty: 20 0RF No Action hydrochlorothiazide 25 mg tablet testosterone cypionate 200 mg/mL oil lisinopril 5 mg tablet 5 mg PO DAILY tadalafil [Cialis] 5 mg tablet 5 mg PO DAILY esomeprazole magnesium [Nexium] 20 mg capsule,delayed release(DR/EC) 20 mg PO DAILY Follow-up/Referrals: Fahad,Marisol Souza, PUBLIC HEALTH ADVISOR-[facility]ITA [Primary Care Provider] Stand Alone Forms: Work/School Release IP Time of Disposition: 12:18
[2024-10-28 12:03] VITALS: BP 142/82; PULSE 67; RESP 16; TEMP 36.3; O2SAT 99
[2024-10-28 12:16] LABS: EDSTREPNEGPOS1 Positive (Negative)
== END 2024-10-28 12:23 | disposition home or self-care (01) ==
PROVIDERS: Emergency Provider Nurse Practitioner; PCP Nurse Practitioner
DX: J02.0 Streptococcal pharyngitis (principal); I10 Essential (primary) hypertension; E78.5 Hyperlipidemia, unspecified
CPT/HCPCS: 87880; 99213; G0463